=== PATIENT | female | born 1950 | race Caucasian/White ===

== ENCOUNTER 2017-10-31 21:32 | Inpatient (IN) | payer BC ==
[~2017-10-31] VITALS: Ht 172.7 cm; Wt 86.6 kg
[2017-10-31] MEDS ORDERED: DULO60CA45 PO (22:07)
[2017-10-31] MEDS ORDERED: OXYC5CAP18 PO (22:07)
[2017-10-31] MEDS ORDERED: TRAM50TA2 PO (22:07)
[2017-10-31] MEDS ORDERED: RIVA10TA PO (22:07)
[2017-10-31] MEDS ORDERED: BUPR150T5 PO (22:07)
[2017-10-31] MEDS ORDERED: CEFT1FRO2 IV (22:07)
[2017-10-31] MEDS ORDERED: ESCI10TA PO (22:08)
[2017-10-31] MEDS ORDERED: FLUC100P12 IV (22:08)
[2017-10-31] MEDS ORDERED: FLUT16SP NS (22:08)
[2017-10-31] MEDS ORDERED: METO10SY IJ (22:08)
[2017-10-31] MEDS ORDERED: FLUTICASONE PROP NASAL SPRAY 16 GM BOTTLE NS PRN (23:00)
[2017-10-31] MEDS ORDERED: Medication Not On Formulary EA (Oxycodone Hcl 5 MG) PO PRN (23:00)
[2017-10-31] MEDS: TRAMADOL HCL 50 MG TABLET PO PRN (23:10)
[2017-10-31 23:23] VITALS: BP 137/67
[2017-10-31] MEDS ORDERED: TRAMADOL HCL 50 MG TABLET ONE (23:23)
[2017-11-01] MEDS ORDERED: OXYCODONE HCL 5 MG TABLET ONE (01:53)
[2017-11-01] MEDS: TRAMADOL HCL 50 MG TABLET PO PRN (05:44)
[2017-11-01] MEDS ORDERED: TRAMADOL HCL 50 MG TABLET ONE (05:58)
[2017-11-01 07:14] VITALS: BP 133/61
[2017-11-01] MEDS: DULOXETINE 60 MG CAPSULE.DR PO SCH (11:19)
[2017-11-01] MEDS: OXYCODONE HCL 5 MG TABLET PO PRN ×2 (11:19→15:01)
[2017-11-01] MEDS: ESCITALOPRAM OXALATE 10 MG TABLET PO SCH (11:20)
[2017-11-01 16:36] LABS: BASOPHILS % (AUTO) 0.7 % (0.0-2.0); EOSINOPHILS % (AUTO) 0.3 % (0.0-7.0); HEMOGLOBIN 10.4 g/dL (10.9-14.3); LYMPHOCYTES # (AUTO) 0.7 K/uL (20.0-40.0); LYMPHOCYTES % (AUTO) 10.1 % (20.5-51.5); MEAN CORPUSCULAR HEMOGLOBIN 33.4 uug (24.7-32.8); MEAN CORPUSCULAR HGB CONC 35 g/dL (32.3-35.6); MEAN CORPUSCULAR VOLUME 96.3 fL (75.5-95.3); MONOCYTES # (AUTO) 0.6 K/uL (2.0-10.0); MONOCYTES % (AUTO) 9.6 % (0.0-11.0); NEUTROPHILS # (AUTO) 5.2 K/uL (1.8-8.9); NEUTROPHILS % (AUTO) 79.3 % (38.5-71.5); PLATELET COUNT (AUTO) 504 K/uL (179-408); RED BLOOD CELL COUNT(AUTO) 3.12 MIL/uL (3.63-4.92); WHITE BLOOD COUNT (AUTO) 6.6 K/uL (3.8-11.8)
[2017-11-01 16:39] LABS: BILIRUBIN,TOTAL 0.5 mg/dL (0.2-1.0); CREATININE 0.7 mg/dL (0.6-1.3); MAGNESIUM 1.7 mg/dL (1.8-2.4); PHOSPHOROUS 3.5 mg/dL (2.5-4.9); POTASSIUM 3.9 mmol/L (3.5-5.1); TOTAL PROTEIN, SERUM 5.7 g/dL (6.4-8.2)
[2017-11-01] MEDS ORDERED: HYDROCORTISONE 0.5% CREAM 28.35 GM TUBE TOP PRN (18:15)
[2017-11-01] MEDS: RIVAROXABAN 10 MG TABLET PO SCH (18:42)
[2017-11-01] MEDS: ACETAMINOPHEN/CODEINE 300-30 MG TABLET PO PRN (18:42)
[2017-11-01] MEDS: MORPHINE SULFATE SR 15 MG TABLET.SA PO SCH (20:51)
[2017-11-01 20:53] VITALS: BP 141/75
[2017-11-01] MEDS ORDERED: ALBUTEROL SULFATE 2.5 MG/3 ML NEBU NEB PRN (23:45)
[2017-11-01] MEDS: GUAIFENESIN/CODEINE 5 ML LIQUID UDC PO PRN (23:57)
[2017-11-02] MEDS ORDERED: GUAIFENESIN/CODEINE 5 ML LIQUID UDC ONE ×3 (00:11→06:55)
[2017-11-02] MEDS: ACETAMINOPHEN/CODEINE 300-30 MG TABLET PO PRN ×2 (02:34→18:36)
[2017-11-02] MEDS: GUAIFENESIN/CODEINE 5 ML LIQUID UDC PO PRN ×2 (06:36→23:02)
[2017-11-02 08:05] VITALS: BP 134/63
[2017-11-02] MEDS: DULOXETINE 60 MG CAPSULE.DR PO SCH (09:27)
[2017-11-02] MEDS: MORPHINE SULFATE SR 15 MG TABLET.SA PO SCH ×2 (09:27→20:44)
[2017-11-02] MEDS: ESCITALOPRAM OXALATE 10 MG TABLET PO SCH (09:27)
[2017-11-02] MEDS: RIVAROXABAN 10 MG TABLET PO SCH (17:14)
[2017-11-02 19:00] VITALS: BP 115/58
[2017-11-03] MEDS: ACETAMINOPHEN/CODEINE 300-30 MG TABLET PO PRN ×3 (02:04→17:43)
[2017-11-03 08:34] VITALS: BP 133/69
[2017-11-03] MEDS: ESCITALOPRAM OXALATE 10 MG TABLET PO SCH (08:51)
[2017-11-03] MEDS: DULOXETINE 60 MG CAPSULE.DR PO SCH (08:51)
[2017-11-03] MEDS: MORPHINE SULFATE SR 15 MG TABLET.SA PO SCH ×2 (08:51→20:53)
[2017-11-03] MEDS: RIVAROXABAN 10 MG TABLET PO SCH (17:38)
[2017-11-03 20:49] VITALS: BP 140/71
[2017-11-04] MEDS: ACETAMINOPHEN/CODEINE 300-30 MG TABLET PO PRN ×2 (04:55→14:29)
[2017-11-04 08:45] VITALS: BP 157/70
[2017-11-04] MEDS: MORPHINE SULFATE SR 15 MG TABLET.SA PO SCH ×2 (09:24→20:54)
[2017-11-04] MEDS: ESCITALOPRAM OXALATE 10 MG TABLET PO SCH (09:24)
[2017-11-04] MEDS: DULOXETINE 60 MG CAPSULE.DR PO SCH (09:24)
[2017-11-04 09:37] LABS: BILIRUBIN,TOTAL 0.3 mg/dL (0.2-1.0); CREATININE 0.5 mg/dL (0.6-1.3); MAGNESIUM 1.6 mg/dL (1.8-2.4); PHOSPHOROUS 3.8 mg/dL (2.5-4.9); POTASSIUM 3.5 mmol/L (3.5-5.1); TOTAL PROTEIN, SERUM 5.5 g/dL (6.4-8.2)
[2017-11-04 09:43] LABS: THYROID STIMULATING HORMONE 3.007 mIU/mL (0.358-3.740)
[2017-11-04] MEDS ORDERED: MAGNESIUM OXIDE 400 MG TABLET PO ONE (13:45)
[2017-11-04] MEDS ORDERED: POTASSIUM CHLORIDE 20 MEQ TAB.PRT.SR PO ONE (13:45)
[2017-11-04] MEDS: FUROSEMIDE 20 MG TABLET PO SCH (14:28)
[2017-11-04] MEDS: RIVAROXABAN 10 MG TABLET PO SCH (18:09)
[2017-11-04 21:56] VITALS: BP 132/67
[2017-11-05] MEDS: ACETAMINOPHEN/CODEINE 300-30 MG TABLET PO PRN ×3 (05:25→18:08)
[2017-11-05 08:00] VITALS: BP 155/92
[2017-11-05] MEDS: MORPHINE SULFATE SR 15 MG TABLET.SA PO SCH ×2 (08:33→20:26)
[2017-11-05] MEDS: ESCITALOPRAM OXALATE 10 MG TABLET PO SCH (08:33)
[2017-11-05] MEDS: FUROSEMIDE 20 MG TABLET PO SCH (08:33)
[2017-11-05] MEDS: DULOXETINE 60 MG CAPSULE.DR PO SCH (08:33)
[2017-11-05] MEDS: RIVAROXABAN 10 MG TABLET PO SCH (18:08)
[2017-11-05 21:50] VITALS: BP 135/77
[2017-11-06] MEDS: ACETAMINOPHEN/CODEINE 300-30 MG TABLET PO PRN (06:01)
[2017-11-06] MEDS: DULOXETINE 60 MG CAPSULE.DR PO SCH (09:22)
[2017-11-06] MEDS: ESCITALOPRAM OXALATE 10 MG TABLET PO SCH (09:22)
[2017-11-06] MEDS: FUROSEMIDE 20 MG TABLET PO SCH (09:22)
[2017-11-06] MEDS: MORPHINE SULFATE SR 15 MG TABLET.SA PO SCH ×2 (09:24→22:44)
[2017-11-06 19:00] VITALS: BP 126/71
[2017-11-06] MEDS: RIVAROXABAN 10 MG TABLET PO SCH (19:12)
[2017-11-07 09:01] VITALS: BP 121/64
[2017-11-07] MEDS: FUROSEMIDE 20 MG TABLET PO SCH (09:31)
[2017-11-07] MEDS: ESCITALOPRAM OXALATE 10 MG TABLET PO SCH (09:31)
[2017-11-07] MEDS: MORPHINE SULFATE SR 15 MG TABLET.SA PO SCH ×2 (09:31→21:36)
[2017-11-07] MEDS: DULOXETINE 60 MG CAPSULE.DR PO SCH (09:31)
[2017-11-07] MEDS: RIVAROXABAN 10 MG TABLET PO SCH (18:31)
[2017-11-07 21:58] VITALS: BP 140/65
[2017-11-08] MEDS: ACETAMINOPHEN/CODEINE 300-30 MG TABLET PO PRN (00:20)
[2017-11-08 07:03] VITALS: BP 159/84
[2017-11-08] MEDS: DULOXETINE 60 MG CAPSULE.DR PO SCH (10:38)
[2017-11-08] MEDS: MORPHINE SULFATE SR 15 MG TABLET.SA PO SCH ×2 (10:38→20:54)
[2017-11-08] MEDS: ESCITALOPRAM OXALATE 10 MG TABLET PO SCH (10:38)
[2017-11-08] MEDS: RIVAROXABAN 10 MG TABLET PO SCH (17:34)
[2017-11-08 19:30] VITALS: BP 146/84
[2017-11-09] MEDS: ACETAMINOPHEN/CODEINE 300-30 MG TABLET PO PRN ×2 (04:27→14:31)
[2017-11-09 07:57] VITALS: BP 130/63
[2017-11-09] MEDS: ESCITALOPRAM OXALATE 10 MG TABLET PO SCH (08:51)
[2017-11-09] MEDS: MORPHINE SULFATE SR 15 MG TABLET.SA PO SCH ×2 (08:51→21:07)
[2017-11-09] MEDS: DULOXETINE 60 MG CAPSULE.DR PO SCH (08:51)
[2017-11-09] MEDS: RIVAROXABAN 10 MG TABLET PO SCH (17:34)
[2017-11-09 19:00] VITALS: BP_SYST 118; BP_SYST 145; BP_DIAS 66; BP_DIAS 73
[2017-11-10] MEDS: ACETAMINOPHEN/CODEINE 300-30 MG TABLET PO PRN ×2 (03:42→11:42)
[2017-11-10 07:30] VITALS: BP 131/74
[2017-11-10] MEDS: DULOXETINE 60 MG CAPSULE.DR PO SCH (08:50)
[2017-11-10] MEDS: ESCITALOPRAM OXALATE 10 MG TABLET PO SCH (08:50)
[2017-11-10] MEDS: MORPHINE SULFATE SR 15 MG TABLET.SA PO SCH ×2 (08:52→21:04)
[2017-11-10] MEDS: RIVAROXABAN 10 MG TABLET PO SCH (18:19)
[2017-11-10 19:56] VITALS: BP 125/75
[2017-11-11] MEDS: ACETAMINOPHEN/CODEINE 300-30 MG TABLET PO PRN (06:53)
[2017-11-11 08:00] VITALS: BP 111/69
[2017-11-11] MEDS: ESCITALOPRAM OXALATE 10 MG TABLET PO SCH (09:18)
[2017-11-11] MEDS: DULOXETINE 60 MG CAPSULE.DR PO SCH (09:18)
[2017-11-11] MEDS: MORPHINE SULFATE SR 15 MG TABLET.SA PO SCH ×2 (09:20→21:18)
[2017-11-11] MEDS: RIVAROXABAN 10 MG TABLET PO SCH (17:50)
[2017-11-11 19:43] VITALS: BP 122/67
[2017-11-12 08:00] VITALS: BP 121/69
[2017-11-12] MEDS: ESCITALOPRAM OXALATE 10 MG TABLET PO SCH (08:35)
[2017-11-12] MEDS: MORPHINE SULFATE SR 15 MG TABLET.SA PO SCH ×2 (08:35→21:17)
[2017-11-12] MEDS: DULOXETINE 60 MG CAPSULE.DR PO SCH (08:35)
[2017-11-12] MEDS: RIVAROXABAN 10 MG TABLET PO SCH (17:10)
[2017-11-12 19:30] VITALS: BP 130/66
[2017-11-13] MEDS: ACETAMINOPHEN/CODEINE 300-30 MG TABLET PO PRN (05:54)
[2017-11-13 07:51] VITALS: BP 116/60
[2017-11-13] MEDS: DULOXETINE 60 MG CAPSULE.DR PO SCH (08:45)
[2017-11-13] MEDS: MORPHINE SULFATE SR 15 MG TABLET.SA PO SCH ×2 (08:46→20:36)
[2017-11-13] MEDS: ESCITALOPRAM OXALATE 10 MG TABLET PO SCH (08:46)
[2017-11-13] MEDS: RIVAROXABAN 10 MG TABLET PO SCH (17:50)
[2017-11-13 20:00] VITALS: BP 132/67
[2017-11-14] MEDS: ACETAMINOPHEN/CODEINE 300-30 MG TABLET PO PRN (04:52)
[2017-11-14 07:55] VITALS: BP 141/77
[2017-11-14] MEDS: DULOXETINE 60 MG CAPSULE.DR PO SCH (08:35)
[2017-11-14] MEDS: ESCITALOPRAM OXALATE 10 MG TABLET PO SCH (08:36)
[2017-11-14] MEDS: MORPHINE SULFATE SR 15 MG TABLET.SA PO SCH (08:36)
== END 2017-11-14 17:00 | disposition home health service (06) | DRG 559 ==
PROVIDERS: ADMIT Physical Medicine & Rehabilitation Pain Medicine; ATTEND Physical Medicine & Rehabilitation Pain Medicine
DX: S72.141D Displaced intertrochanteric fracture of right femur, subsequent encounter for closed fracture with routine healing (principal); E43 Unspecified severe protein-calorie malnutrition; J98.11 Atelectasis; F32.9 Major depressive disorder, single episode, unspecified; Z90.49 Acquired absence of other specified parts of digestive tract; Z93.3 Colostomy status; W18.11XD Fall from or off toilet without subsequent striking against object, subsequent encounter; E66.9 Obesity, unspecified; Z68.29 Body mass index [BMI] 29.0-29.9, adult; E83.42 Hypomagnesemia; F17.210 Nicotine dependence, cigarettes, uncomplicated; J44.9 Chronic obstructive pulmonary disease, unspecified; I08.0 Rheumatic disorders of both mitral and aortic valves; M16.0 Bilateral primary osteoarthritis of hip; M47.816 Spondylosis without myelopathy or radiculopathy, lumbar region; M85.80 Other specified disorders of bone density and structure, unspecified site; Z87.440 Personal history of urinary (tract) infections; Z90.710 Acquired absence of both cervix and uterus; M19.90 Unspecified osteoarthritis, unspecified site; R91.1 Solitary pulmonary nodule; R53.1 Weakness
CPT/HCPCS: 36415; 71010; 71250; 73501; 83735; 84100; 84443; 85025; 92526; 92610; 97110; 97112; 97116; 97165; 97530; 97535; A4217; J3490; J3535